=== PATIENT | male | born 1955 | race Caucasian/White ===

== ENCOUNTER → 2020-02-10 | Outpatient (CLI) | payer BC ==
[~2020-02-10] MED LIST: ALLOPURINOL 10100 M3 PO; ASA81BEC PO; COZAAR 50 MG TA50 M1 PO; FENOFIBRATE160 MG PO; FISH OIL 1,0001 EAC9 PO; LOPRESSOR100 M1 PO; METFORMIN HCL500 M3 PO; NORPACE CR150 MG PO; SIMVASTATIN40 MG PO; VERAPAMIL ER240 M1 PO
== END ==
LOC: LAB 08:27
PROVIDERS: ATTEND Orthopaedic Surgery Sports Medicine
DX: Z01.812 Encounter for preprocedural laboratory examination (principal); Z20.828 Contact with and (suspected) exposure to other viral communicable diseases

== ENCOUNTER 2020-02-13 06:05 | Day surgery (SDC) | payer BC, OTHER ==
[~2020-02-13] VITALS: Ht 172.7 cm; Wt 98.4 kg
[2020-02-13 08:38] VITALS: BP 149/89
[2020-02-13 09:34] VITALS: BP 149/89
--- NOTE | 2020-02-13 10:58 | O ---
[facility] [place] [address] OPERATIVE REPORT Name: DENZEL CALVERT Room #: 150-1 [facility] M.[place].#: [id number] Admission: 02/13/20 Attend Phys: Onur Spear Discharge: Date of : 57 Report #: [id number] THIS REPORT FOR: cc: Lalo Lopez MD, David R. MD VanDenBerghe,Onur Dozier MD ~ CC: Lalo Braden DATE OF SERVICE: 02/13/2020 PREOPERATIVE DIAGNOSES: Right shoulder pain, rotator cuff tear, impingement syndrome, biceps tendinopathy. POSTOPERATIVE DIAGNOSES: Right shoulder pain; rotator cuff tear, medium sized; long head biceps tendon tear; complex labral tear; intra-articular synovitis; subacromial bursitis with impingement syndrome. PROCEDURE PERFORMED: Right shoulder arthroscopy, rotator cuff repair, arthroscopic biceps tenodesis, subacromial decompression, extensive debridement. SURGEON: Onur Braden MD VALUATION MANAGER: Elodia Perez PA-C. ANESTHESIA: General with preoperative ultrasound-guided interscalene block. FLUIDS: 750 mL crystalloid. ESTIMATED BLOOD LOSS: Approximately 5 mL. DESCRIPTION OF PROCEDURE: After proper identification of the patient and operative site in preoperative holding area, the operative site was signed by myself. Prophylactic antibiotics given. The patient elected to receive a general anesthetic and the ultrasound-guided block. The patient was brought back to the operative suite after induction of satisfactory general anesthesia. The patient's right shoulder was examined. It was stable throughout a full arc of motion comparable to the preoperative assessment. The patient was carefully positioned in the left lateral decubitus position. Alexandra bag and axillary roll were utilized to support the torso. The right shoulder was sterilely prepped and draped in the usual manner and placed in 10 pounds of balanced arthroscopic suspension. Posterior portal was established, joint was inflated with an arthroscopic pump set at 40 mmHg. Anterior superior portal was created using a spinal needle for localization. Examination of the glenohumeral joint revealed long head of the biceps tendon tear near its root attachment on the superior labrum. There was surrounding anterior and anterior inferior labral fraying and [facility] [address] [place] [address] OPERATIVE REPORT Name: DENZEL CALVERT Room #: 150-1 [facility] MRomina.#: [id number] Admission: 02/13/20 Attend Phys: Onur Spear Discharge: Date of : 57 Report #: [id number] tearing. This was carefully debrided with motorized shaver. Intra-articular synovitis was noted about the rotator interval and superior capsule. From the articular side, there was also noted a rotator cuff tear, some mild thinning and fibrillation was noted of the inferior chondral surface and the more superior humeral head. Upper border of the subscapularis was intact as well as the remainder of this. Lever pull maneuver was utilized to visualize this. Frayed portion of the cuff was debrided from the articular side. Tendon grasping stitch was placed on the biceps. It was released off the superior labrum. This area was then carefully debrided. The arthroscope was introduced into subacromial space and a very thickened subacromial bursa was encountered. It was resected for visualization purposes. There was fraying on the undersurface of the coracoacromial arch and prominence to the acromion was removed using motorized bur. Approximately 3 mm of bone was resected. The patient had a full thickness rotator cuff tear of approximately 2 cm width. Combination of hand and motorized instrumentation was used to prepare the greater tuberosity. The frayed portion of the cuff was carefully debrided through a separate portal off the lateral border of the acromion, a triple-loaded 4.75 mm SwiveLock anchor was inserted just off the articular margin. The sutures were passed in a horizontal mattress fashion with the FiberTapes more centrally placed, so a total of 3 suture pairs were utilized for fixation. Sutures were tied. All 3 pairs were brought laterally through a second row anchor creating a double row construct using additional SwiveLock anchor. This anatomically reduced the tear. It was stable to probing. At this point, the biceps tendon was delivered out the anterolateral portal. Whipstitch was applied. Frayed portion of the tendon was debrided and it was secured to the bicipital groove using an Arthrex proximal biceps tenodesis button in a predrilled hole. The button was delivered. It was toggled. It was then biceps tendon was tensioned to the drill hole and this was then tied. Biceps was stable to probing and nicely reduced within the tunnel. Subacromial space thoroughly irrigated with normal saline. Portals closed with simple nylon stitch. Sterile dressing was applied. The patient will be immobilized in a sling and abduction pillow for 6 weeks postoperatively. Qualified cutting table operator first utilized throughout the entire procedure to aid in patient limb positioning, visualization with arthroscope, instrument and suture passage as well as closure and sling application. <ELECTRONICALLY SIGNED> By: Onur Braden MD 02/13/20 [id number] Onur Braden MD /nt
== END 2020-02-13 10:35 | disposition home or self-care (01) ==
LOC: TBA 06:05 → OR 06:05
PROVIDERS: ATTEND Orthopaedic Surgery Sports Medicine
DX: M25.511 Pain in right shoulder (principal); M75.101 Unspecified rotator cuff tear or rupture of right shoulder, not specified as traumatic; M75.41 Impingement syndrome of right shoulder; M75.21 Bicipital tendinitis, right shoulder; I10 Essential (primary) hypertension; E78.00 Pure hypercholesterolemia, unspecified; I48.91 Unspecified atrial fibrillation; E11.9 Type 2 diabetes mellitus without complications; Z87.442 Personal history of urinary calculi; Z98.890 Other specified postprocedural states; Z79.899 Other long term (current) drug therapy; Z79.01 Long term (current) use of anticoagulants; Z88.8 Allergy status to other drugs, medicaments and biological substances
CPT/HCPCS: 50010; 50101; 50172; 50386; 50417; 50935; 51320; 51847; 52001; 53610; 56525; 56527; 56530; 57103; 57418; 57420; 62110; 62900; 64039; 70005